=== PATIENT | male | born 1965 | race African-American/Black ===

== ENCOUNTER 2018-11-14 10:37 | Emergency (ER) | payer BC, OTHER ==
[~2018-11-14] VITALS: Ht 172.7 cm; Wt 90.7 kg
[2018-11-14] MEDS ORDERED: cloNIDine HCL 0.1 MG TAB PO ONE (11:15)
[2018-11-14 11:38] LABS: Basophils # (auto) 0.1 uL; Basophils % (auto) 1.1 % (0.0-2.0); Eosinophils # (auto) 0.3 uL; Eosinophils % (auto) 3.2 % (0.0-7.0); Lymphocytes # (auto) 2.6 uL; Lymphocytes % (auto) 32.1 % (10.0-50.0); Mean Corpuscular Hemoglobin 33.2 pg (28.0-32.0); Mean Corpuscular Volume 97.7 fL (80.0-100.0); Monocytes # (auto) 0.7 uL; Monocytes % (auto) 8.8 % (0.0-12.0); Neutrophils # (auto) 4.5 uL; Neutrophils % (auto) 54.8 % (37.0-80.0); Platelet Count (auto) 210 10^3/uL (140-450); Red Blood Cells 4.81 10^6/uL (4.5-5.90); Red Cell Distribution Width 14.5 % (11.8-14.3); White Blood Cell 8.2 10^3/uL (4.4-10.8)
[2018-11-14 11:49] LABS: Alanine Aminotransferase 24 U/L (16-61); Albumin 3.9 g/dL (3.4-5.0); Anion Gap 7 (5-15); Aspartate Aminotransferase 18 U/L (15-37); BUN/Creatinine Ratio 9.5; Blood Urea Nitrogen 11 mg/dL (7-18); Carbon Dioxide 26 mmol/L (21-32); Chloride 108 mmol/L (98-107); GFR African American 85 mL/min; GFR Non-African American 71 mL/min; Glucose 107 mg/dL (74-106); Potassium 3.8 mmol/L (3.5-5.1); Sodium 141 mmol/L (136-145)
[2018-11-14 11:54] LABS: Alkaline Phosphatase 101 U/L (45-117); Bilirubin, Total 0.3 mg/dL (0.2-1.0); Total Protein 8.3 g/dL (6.4-8.2)
[2018-11-14 13:03] VITALS: BP 162/100
== END 2018-11-14 14:07 | disposition home or self-care (01) ==
LOC: ER 10:45
DX: I16.0 Hypertensive urgency (principal); F17.210 Nicotine dependence, cigarettes, uncomplicated; F12.10 Cannabis abuse, uncomplicated
CPT/HCPCS: 36415; 71046; 80053; 83735; 84484; 85025; 93005; 94761

== ENCOUNTER 2020-07-29 05:53 | Emergency (ER) | payer BC ==
[~2020-07-29] VITALS: Ht 172.7 cm; Wt 90.7 kg
[2020-07-29 08:53] VITALS: BP 162/95
== END 2020-07-29 09:06 | disposition home or self-care (01) ==
LOC: ER 05:53
DX: Z02.89 Encounter for other administrative examinations (principal)